=== PATIENT | female | born 1965 | race Caucasian/White ===

== ENCOUNTER 2018-01-31 07:03 | Day surgery (SDC) | payer MEDICARE ==
[~2018-01-31 07:03] MED LIST: CEFAZOLIN 2 GM/50 ML (PMX) 50 ML IVPB; SOD CHLORIDE 0.9% 1,000 ML IV
[2018-01-31] MEDS ORDERED: ONDANSETRON 4 MG INJ (08:02)
[2018-01-31] MEDS ORDERED: FENTAnyl 50 MCG/ML VIAL (08:02)
[2018-01-31] MEDS ORDERED: PROPOFOL 20 ML (08:02)
[2018-01-31] MEDS ORDERED: LIDOCAINE 1% (MDV) 20 ML INJ (08:03)
[2018-01-31] MEDS ORDERED: DEXAMETHASONE 4 MG/ML 1 ML INJ (08:03)
[2018-01-31 08:24] LABS: ADD MAN DIFF? NO
[2018-01-31 08:29] LABS: BASOPHIL # 0.1 10^3/ul (0.0-0.1); BASOPHILS % 0.9 % (0.0-2.0); EOSINOPHILS % 0.7 % (0.0-7.0); HEMATOCRIT 38.4 % (37.0-47.0); LYMPHOCYTES # 1.6 10^3/ul (0.8-2.9); LYMPHOCYTES % 28.6 % (15.0-51.0); MEAN CORPUSCULAR HEMOGLOBIN 31.6 pg (29.0-33.0); MEAN CORPUSCULAR HGB CONC 33.9 g/dl (32.0-37.0); MEAN CORPUSCULAR VOLUME 93.2 fl (82.0-101.0); MEAN PLATELET VOLUME 10.9 fl (7.4-10.4); MONOCYTE # 0.4 10^3/ul (0.3-0.9); MONOCYTES % 7.3 % (0.0-11.0); NEUTROPHIL # 3.6 10^3/ul (1.6-7.5); NEUTROPHILS % 62.2 % (39.0-77.0); PLATELET COUNT 188 10^3/UL (140-415); RED BLOOD COUNT 4.12 10^6/ul (4.20-5.40); RED CELL DISTRIBUTION WIDTH 13.1 % (11.5-14.5)
[2018-01-31 08:29] LABS: WHITE BLOOD COUNT 5.7 10^3/ul (4.8-10.8)
[2018-01-31] MEDS ORDERED: MEPERIDINE 25 MG INJ IV (08:30)
[2018-01-31] MEDS ORDERED: MIDAZOLAM 1 MG/ML 2 ML INJ IV (08:30)
[2018-01-31] MEDS ORDERED: ONDANSETRON 4 MG INJ IV (08:30)
[2018-01-31 08:45] LABS: INR 0.99; PROTIME 13.2 Sec (11.9-14.9)
[2018-01-31 08:46] LABS: PARTIAL THROMBOPLASTIN TIME 25.7 Sec (25.0-35.0)
[2018-01-31 08:52] LABS: ALANINE AMINOTRANSFERASE 13 IU/L (13-69); ALBUMIN 4.3 g/dl (3.3-4.9); ALBUMIN/GLOBULIN RATIO 1.34; ALKALINE PHOSPHATASE 75 IU/L (42-121); ANION GAP 13 (8-16); ASPARTATE AMINO TRANSFERASE 16 IU/L (15-46); BILIRUBIN,INDIRECT 0.8 mg/dl (0-1.1); BILIRUBIN,TOTAL 0.8 mg/dl (0.2-1.3); CARBON DIOXIDE 27 mmol/L (21-31); CHLORIDE 108 mmol/L (97-110); GLUCOSE 93 mg/dl (70-220); TOTAL PROTEIN 7.5 g/dl (6.1-8.1)
[2018-01-31 08:56] LABS: BLOOD UREA NITROGEN 13 mg/dl (7-20); CALCIUM 9.3 mg/dl (8.4-10.2); CREATININE 0.62 mg/dl (0.44-1.00); SODIUM 144 mmol/L (135-144)
[2018-01-31] MEDS ORDERED: MIDAZOLAM 1 MG/ML 2 ML INJ (09:07)
[2018-01-31] MEDS: FENTAnyl 50 MCG/ML VIAL IV (10:55)
== END 2018-01-31 11:30 | disposition home or self-care (01) ==
LOC: SDS 07:03
DX: Z45.2 Encounter for adjustment and management of vascular access device (principal); Z85.3 Personal history of malignant neoplasm of breast; E78.5 Hyperlipidemia, unspecified
CPT/HCPCS: 36590; 71045; 80053; 85025; 85610; 85730; 88300; 93005